=== PATIENT | male | born 1955 | race Caucasian/White ===

== ENCOUNTER 2020-09-23 14:57 | Outpatient (CLI) | payer MEDICARE | END 2020-09-23 23:59 | disposition home or self-care (01) | LOC: CFH 14:57 | PROVIDERS: ATTEND Nurse Practitioner | DX: Z12.2 Encounter for screening for malignant neoplasm of respiratory organs (principal); I71.4 Abdominal aortic aneurysm, without rupture; R91.1 Solitary pulmonary nodule; N28.1 Cyst of kidney, acquired; F17.210 Nicotine dependence, cigarettes, uncomplicated | CPT/HCPCS: 71271; 76706 ==